=== PATIENT | male | born 1965 | race Two or more races ===

== ENCOUNTER 2019-11-11 17:24 | Emergency (ER) | payer SELFPAY ==
[~2019-11-11] VITALS: Ht 170.2 cm; Wt 79.4 kg
[2019-11-11 18:00] VITALS: BP 135/75
[2019-11-11] MEDS ORDERED: HYDROcodone-ACET 10/325MG TAB PO ONE (18:15)
[2019-11-11] MEDS ORDERED: TETANUS-DIPTH-ACEL PERTUSSIS 0.5ML SYR Tdap IM ONE (18:15)
[2019-11-11] MEDS ORDERED: SILVER SULFADIAZINE 1 % TOPICAL CREAM 50GM TOP ONE (18:15)
== END 2019-11-11 18:40 | disposition home or self-care (01) ==
LOC: ER 17:24
DX: T20.27XA Burn of second degree of neck, initial encounter (principal); T21.14XA Burn of first degree of lower back, initial encounter; T21.11XA Burn of first degree of chest wall, initial encounter; X19.XXXA Contact with other heat and hot substances, initial encounter; Y93.89 Activity, other specified; Y92.89 Other specified places as the place of occurrence of the external cause; Y99.8 Other external cause status
CPT/HCPCS: 90471; 90715